=== PATIENT | male | born 1975 | race Caucasian/White ===

== ENCOUNTER → 2018-09-19 | Emergency (ER) | payer OTHER ==
[~2018-09-19] VITALS: Ht 177.8 cm; Wt 99.8 kg
[~2018-09-19] MED LIST: IBUPROFEN800 MG PO
== END | disposition home or self-care (01) ==
LOC: ER 12:41
DX: S60.211A Contusion of right wrist, initial encounter (principal); S50.01XA Contusion of right elbow, initial encounter; S40.021A Contusion of right upper arm, initial encounter; W18.09XA Striking against other object with subsequent fall, initial encounter; Y93.89 Activity, other specified; Y92.59 Other trade areas as the place of occurrence of the external cause; Y99.8 Other external cause status

== ENCOUNTER 2018-09-21 10:28 | Outpatient (CLI) | payer OTHER | END 2018-09-21 15:57 | disposition home or self-care (01) | LOC: MRI 10:28 | DX: S43.409A Unspecified sprain of unspecified shoulder joint, initial encounter (principal) | CPT/HCPCS: 73221 ==